=== PATIENT | female | born 2000 ===

== ENCOUNTER 2023-10-23 16:45 | Inpatient (IN) | payer MEDICAID ==
[2023-10-23] MEDS ORDERED: ePHEDrine 50 MG/ML SDV IVPUSH PRN ×2 (17:42)
[2023-10-23] MEDS ORDERED: Sodium Chloride 0.9% 10 ML Syringe FLUSH PRN (18:09)
[2023-10-23] MEDS ORDERED: Terbutaline 1 MG/ML SDV SUBCUT PRN (18:09)
[2023-10-23] MEDS ORDERED: Carboprost Tromethamine 250 MCG/1 mL Vial IM PRN (18:09)
[2023-10-23] MEDS ORDERED: Tranexamic Acid IN NACL,ISO-OS 1,000 MG in Premix Bag 1 BAG IV PRN (18:09)
[2023-10-23] MEDS ORDERED: Lidocaine 1% 50 ML MDV INJECT PRN (18:09)
[2023-10-23] MEDS ORDERED: Methylergonovine 0.2 MG/1 ML Amp IM PRN (18:09)
[2023-10-23] MEDS ORDERED: Water For Irrigation,Sterile 1,000 ML Container IRR PRN (18:09)
[2023-10-23] MEDS ORDERED: Sodium Chloride 0.9% 2.5 ML Syringe FLUSH PRN (18:09)
[2023-10-23] MEDS ORDERED: Misoprostol 200 MCG Tab PO PRN (18:09)
[2023-10-23] MEDS ORDERED: Sodium Chloride 0.9% 20 ML SDV IV PRN (18:09)
[2023-10-23 18:38] LABS: HEMATOCRIT 34.6 % (37.0-47.0); HEMOGLOBIN 11.3 g/dL (12.0-16.0); MEAN CORPUSCULAR HEMOGLOBIN 25.6 pg (28.0-32.0); MEAN CORPUSCULAR HGB CONC 32.7 g/dL (32.0-36.0); MEAN CORPUSCULAR VOLUME 78.3 fL (83.0-99.0); PLATELET COUNT,PLT 239 K/uL (150-400); RED BLOOD CELL COUNT 4.42 M/uL (4.10-5.30); WHITE BLOOD CELL COUNT,WBC 12.65 K/uL (3.9-11.3)
[2023-10-23] MEDS: Lactated Ringers 1,000 ML IV SCH (18:41)
[2023-10-23] MEDS: Oxytocin/0.9 % Sodium Chloride 30 UNIT/500 ML BAG IV SCH (18:42)
[2023-10-24] MEDS: Butorphanol 2 MG/ML SDV IVPUSH PRN (13:01)
[2023-10-24] MEDS: Oxytocin/0.9 % Sodium Chloride 30 UNIT/500 ML BAG IV SCH (20:25)
[2023-10-24] MEDS ORDERED: dexmedeTOMIDine HCl 200 MCG/2 ML SDV ONE (20:29)
[2023-10-24] MEDS: Ropivacaine HCl/PF 400 MG in Premix Bag 1 BAG EPIDUR SCH (20:29)
[2023-10-24] MEDS: Phenylephrine HCl In 0.9% NaCl 1 MG/10 ML Syringe IVPUSH ONE (20:31)
[2023-10-24] MEDS: Phenylephrine HCl In 0.9% NaCl 1 MG/10 ML Syringe ONE (23:06)
[2023-10-25] MEDS ORDERED: fentaNYL 100 MCG/2 ML SDV ONE (07:50)
[2023-10-25] MEDS: Oxytocin/0.9 % Sodium Chloride 30 UNIT/500 ML BAG IV SCH (15:31)
[2023-10-25] MEDS ORDERED: oxyCODONE 5 MG Tab PO PRN (15:33)
[2023-10-25 16:09] LABS: PH,UMBILICAL ARTERIAL 7.232 (7.18-7.38); PH,UMBILICAL VENOUS 7.333 (7.25-7.45)
[2023-10-25] MEDS: Benzocaine/Menthol 20%-0.5% Spray 78 GM Cannister TOP PRN (17:07)
[2023-10-25] MEDS: Witch Hazel Medicated Pads 40/Jar TOP PRN (17:07)
[2023-10-25] MEDS: Lanolin 100% Cream 7 GM Tube TOP PRN (17:07)
[2023-10-25] MEDS: Ibuprofen 800 MG Tab PO PRN (17:11)
[2023-10-25] MEDS: Acetaminophen 500 MG Tab PO PRN (17:12)
[2023-10-25] MEDS: Docusate Sodium 100 MG Cap PO PRN (21:17)
[2023-10-26 05:34] LABS: HEMATOCRIT 31.2 % (37.0-47.0)
== END 2023-10-26 17:40 | disposition home or self-care (01) | DRG 807 ==
LOC: MW.OBCHECK 16:45 → MW.OB 16:46 → MW.OBCHECK 18:09 → MW.OB 18:09 → OBSVTOIN 10-25 15:33 → MW.OB 10-25 17:52
PROVIDERS: ADMIT Obstetrics & Gynecology; ATTEND Obstetrics & Gynecology
PROC: 10E0XZZ Delivery of Products of Conception, External Approach (ICD-10-PCS; principal; 2023-10-25)
PROC: 0HQ9XZZ Repair Perineum Skin, External Approach (ICD-10-PCS; 2023-10-25)
PROC: 3E0P7VZ Introduction of Hormone into Female Reproductive, Via Natural or Artificial Opening (ICD-10-PCS; 2023-10-25)
DX: O99.214 Obesity complicating childbirth (principal); Z37.0 Single live birth; O48.0 Post-term pregnancy; O99.52 Diseases of the respiratory system complicating childbirth; J45.909 Unspecified asthma, uncomplicated; O70.0 First degree perineal laceration during delivery; Z3A.40 40 weeks gestation of pregnancy
CPT/HCPCS: 36415; 51702; 59025; 59200; 59300; 59409; 82803; 85014; 85018; 85027; 86592; 86850; 86900; 86901; A9270-GY; J0595; J2371; J2590; J2795; J3010; J3490; J7120